=== PATIENT | male | born 1945 | race Caucasian/White ===

== ENCOUNTER 2024-09-16 09:23 | Inpatient (IN) | payer MEDICARE ==
[~2024-09-16] VITALS: Ht 170.2 cm; Wt 87.2 kg
[~2024-09-16 09:23] MED LIST: PANT-31 PO; QUET25TA PO; SERT-162 PO
[2024-09-16] MEDS: MORPHINE SULFATE 2 MG/ML SYRINGE IVP ONE (09:44)
[2024-09-16 10:12] LABS: PLATELET COUNT (AUTO) 195 K/uL (150-450); RED BLOOD CELL COUNT(AUTO) 3.69 MIL/uL (4.50-5.90); RED CELL DISTRIBUTION WIDTH 14.4 % (11.5-14.5); WHITE BLOOD COUNT (AUTO) 10.1 K/uL (4.5-11.0)
[2024-09-16 10:18] LABS: CALCIUM, TOTAL 9.0 mg/dL (8.8-10.5); CREATININE 0.83 mg/dL (0.60-1.30); GLOMERULAR FILTR. RATE CALC > 60 mL/min (>60); GLUCOSE,RANDOM 120 mg/dL (70-110); SODIUM SERUM 135 mmol/L (136-145); UREA NITROGEN, BLOOD 21 mg/dL (7-18)
[2024-09-16] MEDS: ACETAMINOPHEN 500 MG TABLET PO ONE (10:22)
[2024-09-16] MEDS ORDERED: MAGNESIUM HYDROXIDE SUSPENSION 30 ML UDCUP PO PRN (12:30)
[2024-09-16] MEDS ORDERED: ONDANSETRON HCL 4 MG/2 ML VIAL IVP PRN (12:30)
[2024-09-16] MEDS ORDERED: ACETAMINOPHEN 325 MG TABLET PO PRN (12:30)
[2024-09-16] MEDS ORDERED: OxyCODONE HCL/ACETAMINOPHEN 5-325 MG TABLET PO PRN (12:30)
[2024-09-16] MEDS: OxyCODONE HCL/ACETAMINOPHEN 5-325 MG TABLET PO PRN (14:29)
[2024-09-16 15:02] VITALS: BP 127/68; PULSE 78; RESP 18; TEMP 98.2; O2SAT 96
[2024-09-16] MEDS: HEPARIN SODIUM,PORCINE 5,000 UNITS/ML VIAL SQ SCH (16:00)
[2024-09-16] MEDS ORDERED: SODIUM CHLORIDE 0.9% 1,000 ML ONE (16:56)
[2024-09-16] MEDS: SODIUM CHLORIDE 0.9% 1,000 ML IV ONE (17:03)
[2024-09-16 19:27] VITALS: BP 110/66; PULSE 75; RESP 18; TEMP 98.1; O2SAT 95
[2024-09-16] MEDS: DOCUSATE SODIUM 100 MG CAPSULE PO SCH (20:43)
[2024-09-17 08:00] VITALS: BP 122/72; PULSE 85; RESP 18; TEMP 98.9; O2SAT 96
[2024-09-17] MEDS: MULTIVITAMINS WITH MINERALS, THERAPEUTIC TABLET PO SCH (09:02)
[2024-09-17] MEDS: FAMOTIDINE 20 MG TABLET PO SCH (09:02)
[2024-09-17] MEDS: SODIUM CHLORIDE 0.9% 1,000 ML IV ONE (13:55)
[2024-09-17 16:03] VITALS: BP 108/70; PULSE 91; RESP 20; TEMP 98.4; O2SAT 96
[2024-09-17 20:47] VITALS: BP 118/68; PULSE 99; RESP 16; TEMP 99.1; O2SAT 95
[2024-09-18 04:45] VITALS: BP 127/80; PULSE 95; RESP 17; TEMP 98.6; O2SAT 95
[2024-09-18 07:38] VITALS: BP 111/63; PULSE 86; RESP 20; TEMP 98.2; O2SAT 100
[2024-09-18 15:54] VITALS: BP 112/76; PULSE 90; RESP 18; TEMP 98.8; O2SAT 94
[2024-09-18] MEDS ORDERED: SODIUM CHLORIDE 0.9% 1,000 ML ONE (20:20)
[2024-09-18 20:39] VITALS: BP 112/63; PULSE 82; RESP 18; TEMP 98.8; O2SAT 94
[2024-09-19 04:49] VITALS: BP 117/68; PULSE 75; RESP 18; TEMP 98.4; O2SAT 95
[2024-09-19 08:28] VITALS: BP 98/65; PULSE 90; RESP 18; TEMP 99.3; O2SAT 97
[2024-09-19] MEDS: SERTRALINE HCL 100 MG TABLET PO SCH (08:53)
[2024-09-19] MEDS ORDERED: SERT-440 PO (13:25)
== END 2024-09-19 16:11 | disposition home or self-care (01) | DRG 885 ==
LOC: EMS 09:23 → EDH 12:20 → 6S 14:10
PROVIDERS: ADMIT Internal Medicine; ATTEND Internal Medicine
PROC: GZ58ZZZ Individual Psychotherapy, Cognitive-Behavioral (ICD-10-PCS; principal; 2024-09-18)
PROC: GZ56ZZZ Individual Psychotherapy, Supportive (ICD-10-PCS; 2024-09-18)
DX: F33.2 Major depressive disorder, recurrent severe without psychotic features (principal); R45.851 Suicidal ideations; F43.10 Post-traumatic stress disorder, unspecified; K21.9 Gastro-esophageal reflux disease without esophagitis; E66.9 Obesity, unspecified; X58.XXXA Exposure to other specified factors, initial encounter; Z68.30 Body mass index [BMI] 30.0-30.9, adult; Y93.89 Activity, other specified; Y92.89 Other specified places as the place of occurrence of the external cause; Y99.8 Other external cause status; M17.9 Osteoarthritis of knee, unspecified
CPT/HCPCS: 73503; 80048; 85025; 87081; 97162; 97530; 99285; J1644; J2270; J7030